=== PATIENT | female | born 1965 | race Caucasian/White ===

== ENCOUNTER 2019-09-21 08:00 | Emergency (ER) | payer MEDICARE, MEDICAID ==
[2019-09-21] MEDS ORDERED: Ibuprofen 200 MG TAB ONE (08:25)
--- NOTE | 2019-09-21 08:50 | RAD ---
Exam:Left tibia fibula 2 views HISTORY: Patient slipped and fell. COMPARISON: None FINDINGS: Nondisplaced fracture with mild fragmentation involving the mid left fibula diaphysis. No a dditional fractures. There are vascular calcifications. IMPRESSION: Mid fibular diaphyseal fracture
--- NOTE | 2019-09-21 08:59 | RAD ---
Exam:2 views left humerus HISTORY: Pain. Trauma. Fall. COMPARISON: None FINDINGS: Diffuse bony mineralization. Stent projects over the left upper extremity soft tissues. No fracture, cortical irregularity or periosteal reaction. IMPRESSION: No fracture.
== END 2019-09-21 09:45 | disposition home or self-care (01) ==
LOC: NAV ERS 08:00
DX: S82.402A Unspecified fracture of shaft of left fibula, initial encounter for closed fracture (principal); S40.022A Contusion of left upper arm, initial encounter; I48.91 Unspecified atrial fibrillation; E11.9 Type 2 diabetes mellitus without complications; E78.5 Hyperlipidemia, unspecified; E78.00 Pure hypercholesterolemia, unspecified; I11.0 Hypertensive heart disease with heart failure; I50.9 Heart failure, unspecified; Z87.891 Personal history of nicotine dependence; Z79.82 Long term (current) use of aspirin; Z79.899 Other long term (current) drug therapy; W19.XXXA Unspecified fall, initial encounter; Y93.01 Activity, walking, marching and hiking
CPT/HCPCS: 29515

== ENCOUNTER 2021-09-14 15:54 | Emergency (ER) | payer MEDICARE, MEDICAID ==
[2021-09-14] MEDS ORDERED: Nitroglycerin 0.4 MG TAB (25 Tab Bottle) ONE (16:25)
[2021-09-14 17:50] LABS: Hemoglobin 8.9 g/dL (12.0-16.0); Red Blood Cell (RBC) Count 2.91 mill/uL (4.20-5.40); White Blood Cell (WBC) Count 3.4 thou/uL (4.8-10.8)
[2021-09-14 17:51] LABS: %Lymphocytes 18.3 % (21.0-51.0); %Neutrophils 70.8 % (42.0-75.0); Mean Corpuscular HGB CONC 30.2 g/dL (32.0-36.0); Mean Corpuscular Hemoglobin 30.6 pg (27.0-31.0); Mean Platelet Volume 9.6 fL (7.4-10.4); Platelet Count 147 thou/uL (130-400); RBC Distribution Width 14.4 % (11.5-14.5)
[2021-09-14 17:52] LABS: #Lymphocytes 0.6 thou/uL (1.20-3.40); #Monocytes 0.3 thou/uL (0.11-0.59); #Neutrophils 2.4 thou/uL (1.40-6.50); %Basophils 0.9 % (0.0-1.0); %Eosinophils 1.4 % (0.0-10.0); %Monocytes 8.5 % (0.0-10.0)
[2021-09-14 17:55] LABS: Anion Gap 18 mmol/L (10-20); BUN (Urea Nitrogen) 13 mg/dL (9.8-20.1); Calc. Creatinine Clearance 0 mL/min (70-130); Carbon Dioxide 29 mmol/L (22-29); Chloride 96 mmol/L (98-107); Potassium 4.5 mmol/L (3.5-5.1); Sodium 138 mmol/L (136-145)
[2021-09-14 17:56] LABS: ALT (SGPT) 8 U/L (8-55); AST (SGOT) 14 U/L (5-34); Albumin 3.8 g/dL (3.5-5.0); Alkaline Phosphatase 166 U/L (40-110); Bilirubin, Total 0.7 mg/dL (0.2-1.2); Calcium 9.5 mg/dL (7.8-10.44); Glucose 93 mg/dL (70-105); Protein, Total 6.8 g/dL (6.0-8.3)
[2021-09-14 18:50] LABS: Critical Call CKMB 38
== END 2021-09-14 18:13 | disposition home or self-care (01) ==
LOC: NAV ERS 15:54
DX: R07.2 Precordial pain (principal); K21.9 Gastro-esophageal reflux disease without esophagitis; I13.0 Hypertensive heart and chronic kidney disease with heart failure and stage 1 through stage 4 chronic kidney disease, or unspecified chronic kidney disease; E11.22 Type 2 diabetes mellitus with diabetic chronic kidney disease; N18.9 Chronic kidney disease, unspecified; I50.9 Heart failure, unspecified; I49.1 Atrial premature depolarization; I48.91 Unspecified atrial fibrillation; E11.9 Type 2 diabetes mellitus without complications; E78.5 Hyperlipidemia, unspecified; I25.2 Old myocardial infarction; E78.00 Pure hypercholesterolemia, unspecified; Z99.2 Dependence on renal dialysis; Z87.19 Personal history of other diseases of the digestive system; Z87.891 Personal history of nicotine dependence; Z79.01 Long term (current) use of anticoagulants; Z79.899 Other long term (current) drug therapy
CPT/HCPCS: 36415; 71045; 80053; 82553; 84484; 85025; 93005